=== PATIENT | male | born 1935 | race Caucasian/White ===

== ENCOUNTER 2018-11-08 18:12 | Inpatient (IN) ==
[2018-11-08 18:47] LABS: Basophils # 0.1 10*3/uL (0.0-0.2); Basophils % 0.5 % (0.0-0.8); Eosinophils # 0.2 10*3/uL (0.0-0.87); Eosinophils % 1.3 % (0.00-10.9); Hemoglobin 15.9 GM/DL (14.0-18.0); Immature Granulocytes % 0.5 %; Immature Granulocytes Absolute 0.06 #; Lymphocytes # 3.1 10*3/uL (1.4-4.0); Lymphocytes % 26.1 % (21.2-54.2); Mean Corpuscular HGB Conc 33.8 GM/DL (32-36); Mean Corpuscular Hemoglobin 32 PG (27-34); Mean Corpuscular Volume 95.5 FL (87-102); Mean Platelet Volume 9.2 FL (9.6-12.0); Monocytes % 8.2 % (1.7-12.7); Neutrophils # 7.6 10*3/uL (1.4-7.4); Neutrophils % 63.4 % (38.7-73.9); Platelet Count 220 T/CUMM (130-400); Red Blood Count 4.92 MC/CUMM (3.8-5.5); Red Cell Distribution Width 12.9 % (9.3-17.3); White Blood Count 11.9 T/CUMM (4-12)
[2018-11-08 19:04] LABS: INR 0.9; PT Patient Result 10.3 SECS; Partial Thromboplastin Time 27.3 SECS (0-40)
[2018-11-08 19:09] LABS: Alanine Aminotransferase 26 U/L (16-61); Albumin 4.1 G/DL (3.4-5.0); Alkaline Phosphatase 112 U/L (45-117); Aspartate Amino Transferase 21 U/L (0-37); Blood Urea Nitrogen 19 MG/DL (7-18); Calcium 9.3 MG/DL (8.5-10.1); Glucose 106 MG/DL (74-106); Osmolality,Calculated 274.8 MOS/KG (273-304); Potassium 4.2 MMOL/L (3.5-5.1); Sodium 137 MMOL/L (136-145); Total Protein 8.2 G/DL (6.4-8.3)
[2018-11-08] MEDS ORDERED: ACETAMINOPHEN 325 MG TABLET PO PRN (19:15)
[2018-11-08] MEDS ORDERED: ONDANSETRON 4 MG/2 ML VIAL IV PRN (19:15)
[2018-11-08] MEDS ORDERED: SODIUM CHLORIDE 0.45% 1,000 ML IV SCH (19:30)
[2018-11-08 19:39] LABS: Apearance,Urine Slightly Hazy (Clear); Bacteria,Urine Occasional /HPF (Few); Bilirubin,Urine Negative (Negative); Blood, Urine Negative (Negative); Glucose,Urine (UA) Negative (Negative); Ketones,Urine Negative (Negative); Mucus,Urine Occasional /LPF (Occasional); Nitrite,Urine Negative (Negative); Protein,Urine Negative; RBC,Urine 1 /HPF (0-4); Squamous Epithelial Cell,Urine Occasional /HPF (0-10); Urine Color Yellow (Yellow); Urine Specific Gravity 1.016 (1.001-1.035); Urine Urobilinogen < 2.0 EU/DL (0.2-1.0); WBC,Urine 5 /HPF (0-6)
[2018-11-08 19:48] LABS: Barbiturates Screen,Urine Negative (Negative); Benzodiazepines Screen,Urine Negative (Negative); Cannabinoid Screen,Urine Negative (Negative); Opiate Screen,Urine Negative (Negative); Phencyclidine Screen,Urine Negative (Negative)
[2018-11-08] MEDS ORDERED: ENOXAPARIN 40 MG/0.4 ML SYRINGE SUBCUT SCH (21:00)
[2018-11-08] MEDS: DOCUSATE SODIUM 100 MG CAPSULE PO SCH (21:28)
[2018-11-09] MEDS ORDERED: PANTOPRAZOLE 40 MG TABLET PO SCH (09:00)
[2018-11-09] MEDS: DOCUSATE SODIUM 100 MG CAPSULE PO SCH (09:57)
[2018-11-09 13:14] VITALS: BP 123/62
[2018-11-09] MEDS ORDERED: POTASSIUM CHLORIDE 8 MEQ CAPSULE PO SCH (17:00)
[2018-11-09] MEDS ORDERED: diphenhydrAMINE CAP 25 MG CAPSULE PO SCH (21:00)
[2018-11-09] MEDS ORDERED: ALLOPURINOL 300 MG TABLET PO SCH (21:00)
[2018-11-09] MEDS ORDERED: DIPYRIDAMOLE/ASPIRIN 200-25 MG CAPSULE PO SCH (21:00)
[2018-11-09] MEDS ORDERED: amLODIPine 5 MG TABLET PO SCH (21:00)
[2018-11-09] MEDS ORDERED: APIXABAN 2.5 MG TABLET PO SCH (21:00)
[2018-11-10] MEDS ORDERED: LEVOTHYROXINE 50 MCG TABLET PO SCH (07:00)
[2018-11-10] MEDS ORDERED: ASPIRIN EC 81 MG TABLET PO SCH (09:00)
== END 2018-11-09 15:24 | disposition home or self-care (01) | DRG 69 ==
LOC: N.ED 18:12 → N.EDINP 20:05 → N.4E 20:09
PROVIDERS: ADMIT Internal Medicine; ATTEND Internal Medicine

== ENCOUNTER 2019-02-25 11:03 | Inpatient (IN) ==
[2019-02-25] MEDS ORDERED: ONDANSETRON 4 MG/2 ML VIAL IV PRN (11:32)
[2019-02-25] MEDS ORDERED: ALBUTEROL/IPRATROPIUM 3 ML NEB RESP TX PRN ×2 (11:37)
[2019-02-25] MEDS: LEVOFLOXACIN INJ 500 MG in PREMIX 1 EACH IV SCH (14:49)
[2019-02-25] MEDS: SODIUM CHLORIDE 0.9% 1,000 ML IV SCH (14:49)
[2019-02-25 16:08] LABS: Bilirubin,Total 1.2 MG/DL (0.2-1.0); Calcium 8.5 MG/DL (8.5-10.1); Osmolality,Calculated 277.7 MOS/KG (273-304); Total Protein 7.2 G/DL (6.4-8.3)
[2019-02-25] MEDS: POTASSIUM CHLORIDE 8 MEQ CAPSULE PO SCH (17:33)
[2019-02-25] MEDS: ALLOPURINOL 300 MG TABLET PO SCH (20:28)
[2019-02-25] MEDS: DOCUSATE SODIUM 100 MG CAPSULE PO SCH (20:29)
[2019-02-25] MEDS: guaiFENesin/DM ER 600-30 MG TABLET PO SCH (20:29)
[2019-02-25] MEDS: APIXABAN 2.5 MG TABLET PO SCH (20:29)
[2019-02-25] MEDS: diphenhydrAMINE CAP 25 MG CAPSULE PO SCH (20:29)
[2019-02-26 04:39] LABS: Basophils % 0.1 % (0.0-0.8); Eosinophils % 0.1 % (0.00-10.9); Hematocrit 36.7 VOL% (42.0-52.0); Hemoglobin 12.2 GM/DL (14.0-18.0); Immature Granulocytes % 0.9 %; Immature Granulocytes Absolute 0.13 #; Lymphocytes # 2.4 10*3/uL (1.4-4.0); Lymphocytes % 16.3 % (21.2-54.2); Mean Corpuscular HGB Conc 33.2 GM/DL (32-36); Mean Corpuscular Volume 94.3 FL (87-102); Mean Platelet Volume 10.1 FL (9.6-12.0); Monocytes % 9.2 % (1.7-12.7); Neutrophils % 73.4 % (38.7-73.9); Platelet Count 167 T/CUMM (130-400); Red Blood Count 3.89 MC/CUMM (3.8-5.5); Red Cell Distribution Width 13.3 % (9.3-17.3); White Blood Count 14.6 T/CUMM (4-12)
[2019-02-26 04:55] LABS: Osmolality,Calculated 278.7 MOS/KG (273-304)
[2019-02-26] MEDS: SODIUM CHLORIDE 0.9% 1,000 ML IV SCH ×3 (06:03→19:06)
[2019-02-26] MEDS: LEVOTHYROXINE 50 MCG TABLET PO SCH (06:04)
[2019-02-26] MEDS: PANTOPRAZOLE 40 MG TABLET PO SCH (06:04)
[2019-02-26] MEDS: guaiFENesin/DM ER 600-30 MG TABLET PO SCH ×2 (09:37→20:55)
[2019-02-26] MEDS: ASPIRIN EC 81 MG TABLET PO SCH (09:37)
[2019-02-26] MEDS: APIXABAN 2.5 MG TABLET PO SCH ×2 (09:37→20:55)
[2019-02-26] MEDS: CYANOCOBALAMIN 500 MCG TABLET PO SCH (09:38)
[2019-02-26] MEDS: NYSTATIN 500,000 UNIT/5 ML UDCUP SWISH/SWAL SCH ×4 (09:38→21:08)
[2019-02-26] MEDS: DOCUSATE SODIUM 100 MG CAPSULE PO SCH ×2 (09:38→20:56)
[2019-02-26] MEDS: POTASSIUM CHLORIDE 8 MEQ CAPSULE PO SCH ×2 (09:38→16:44)
[2019-02-26] MEDS: LEVOFLOXACIN INJ 500 MG in PREMIX 1 EACH IV SCH (09:46)
[2019-02-26] MEDS: ALBUTEROL/IPRATROPIUM 3 ML NEB RESP TX SCH ×2 (14:16→19:19)
[2019-02-26] MEDS: ALLOPURINOL 300 MG TABLET PO SCH (20:55)
[2019-02-26] MEDS: diphenhydrAMINE CAP 25 MG CAPSULE PO SCH (20:56)
[2019-02-27] MEDS: ALBUTEROL/IPRATROPIUM 3 ML NEB RESP TX SCH ×4 (00:42→19:03)
[2019-02-27 04:49] LABS: Basophils % 0.3 % (0.0-0.8); Eosinophils % 0.2 % (0.00-10.9); Hematocrit 36.8 VOL% (42.0-52.0); Hemoglobin 12.1 GM/DL (14.0-18.0); Immature Granulocytes % 1.2 %; Immature Granulocytes Absolute 0.13 #; Lymphocytes # 1.1 10*3/uL (1.4-4.0); Lymphocytes % 10.5 % (21.2-54.2); Mean Corpuscular HGB Conc 32.9 GM/DL (32-36); Mean Corpuscular Volume 95.3 FL (87-102); Mean Platelet Volume 10.1 FL (9.6-12.0); Monocytes % 10.1 % (1.7-12.7); Neutrophils % 77.7 % (38.7-73.9); Platelet Count 167 T/CUMM (130-400); Red Blood Count 3.86 MC/CUMM (3.8-5.5); Red Cell Distribution Width 13.2 % (9.3-17.3); White Blood Count 10.9 T/CUMM (4-12)
[2019-02-27 04:59] LABS: Calcium 8.3 MG/DL (8.5-10.1); Osmolality,Calculated 278.7 MOS/KG (273-304)
[2019-02-27] MEDS: PANTOPRAZOLE 40 MG TABLET PO SCH (05:34)
[2019-02-27] MEDS: LEVOTHYROXINE 50 MCG TABLET PO SCH (06:34)
[2019-02-27] MEDS: CYANOCOBALAMIN 500 MCG TABLET PO SCH (09:04)
[2019-02-27] MEDS: DOCUSATE SODIUM 100 MG CAPSULE PO SCH ×2 (09:04→21:10)
[2019-02-27] MEDS: POTASSIUM CHLORIDE 8 MEQ CAPSULE PO SCH ×2 (09:04→17:07)
[2019-02-27] MEDS: ASPIRIN EC 81 MG TABLET PO SCH (09:04)
[2019-02-27] MEDS: NYSTATIN 500,000 UNIT/5 ML UDCUP SWISH/SWAL SCH ×4 (09:04→21:10)
[2019-02-27] MEDS: guaiFENesin/DM ER 600-30 MG TABLET PO SCH ×2 (09:04→21:10)
[2019-02-27] MEDS: APIXABAN 2.5 MG TABLET PO SCH ×2 (09:04→21:10)
[2019-02-27] MEDS: LEVOFLOXACIN INJ 500 MG in PREMIX 1 EACH IV SCH (09:05)
[2019-02-27] MEDS: PITAVASTATIN 2 MG TABLET PO SCH (09:07)
[2019-02-27] MEDS: SODIUM CHLORIDE 0.9% 1,000 ML IV SCH (11:34)
[2019-02-27] MEDS: diphenhydrAMINE CAP 25 MG CAPSULE PO SCH (21:10)
[2019-02-27] MEDS: ALLOPURINOL 300 MG TABLET PO SCH (21:10)
[2019-02-28] MEDS: ALBUTEROL/IPRATROPIUM 3 ML NEB RESP TX SCH ×4 (01:10→19:30)
[2019-02-28] MEDS: SODIUM CHLORIDE 0.9% 1,000 ML IV SCH ×2 (02:00→17:09)
[2019-02-28 04:32] LABS: Basophils % 0.3 % (0.0-0.8); Eosinophils # 0.1 10*3/uL (0.0-0.87); Eosinophils % 0.9 % (0.00-10.9); Hematocrit 35.1 VOL% (42.0-52.0); Hemoglobin 11.9 GM/DL (14.0-18.0); Immature Granulocytes % 1.5 %; Immature Granulocytes Absolute 0.15 #; Lymphocytes # 1.4 10*3/uL (1.4-4.0); Lymphocytes % 14.7 % (21.2-54.2); Mean Corpuscular HGB Conc 33.9 GM/DL (32-36); Mean Corpuscular Volume 93.1 FL (87-102); Monocytes % 10.8 % (1.7-12.7); Neutrophils % 71.8 % (38.7-73.9); Platelet Count 184 T/CUMM (130-400); Red Blood Count 3.77 MC/CUMM (3.8-5.5); Red Cell Distribution Width 13.3 % (9.3-17.3); White Blood Count 9.8 T/CUMM (4-12)
[2019-02-28 05:05] LABS: Calcium 8.4 MG/DL (8.5-10.1); Osmolality,Calculated 279.5 MOS/KG (273-304)
[2019-02-28] MEDS: PANTOPRAZOLE 40 MG TABLET PO SCH (06:00)
[2019-02-28] MEDS: LEVOTHYROXINE 50 MCG TABLET PO SCH (06:00)
[2019-02-28] MEDS: ASPIRIN EC 81 MG TABLET PO SCH (08:54)
[2019-02-28] MEDS: guaiFENesin/DM ER 600-30 MG TABLET PO SCH ×2 (08:54→20:16)
[2019-02-28] MEDS: NYSTATIN 500,000 UNIT/5 ML UDCUP SWISH/SWAL SCH ×4 (08:54→20:16)
[2019-02-28] MEDS: CYANOCOBALAMIN 500 MCG TABLET PO SCH (08:54)
[2019-02-28] MEDS: DOCUSATE SODIUM 100 MG CAPSULE PO SCH ×2 (08:54→20:16)
[2019-02-28] MEDS: POTASSIUM CHLORIDE 8 MEQ CAPSULE PO SCH ×2 (08:54→17:09)
[2019-02-28] MEDS: APIXABAN 2.5 MG TABLET PO SCH ×2 (08:55→20:17)
[2019-02-28] MEDS: LEVOFLOXACIN INJ 500 MG in PREMIX 1 EACH IV SCH (08:55)
[2019-02-28] MEDS: ACETAMINOPHEN 325 MG TABLET PO PRN (20:13)
[2019-02-28] MEDS: diphenhydrAMINE CAP 25 MG CAPSULE PO SCH (20:16)
[2019-02-28] MEDS: ALLOPURINOL 300 MG TABLET PO SCH (20:17)
[2019-03-01] MEDS: ALBUTEROL/IPRATROPIUM 3 ML NEB RESP TX SCH ×4 (00:52→20:00)
[2019-03-01] MEDS: SODIUM CHLORIDE 0.9% 1,000 ML IV SCH ×2 (04:20→13:48)
[2019-03-01] MEDS: LEVOTHYROXINE 50 MCG TABLET PO SCH (06:11)
[2019-03-01] MEDS: PANTOPRAZOLE 40 MG TABLET PO SCH (06:11)
[2019-03-01] MEDS: guaiFENesin/DM ER 600-30 MG TABLET PO SCH ×2 (08:39→20:51)
[2019-03-01] MEDS: PITAVASTATIN 2 MG TABLET PO SCH (08:39)
[2019-03-01] MEDS: CYANOCOBALAMIN 500 MCG TABLET PO SCH (08:39)
[2019-03-01] MEDS: DOCUSATE SODIUM 100 MG CAPSULE PO SCH ×2 (08:39→20:52)
[2019-03-01] MEDS: POTASSIUM CHLORIDE 8 MEQ CAPSULE PO SCH ×2 (08:39→16:20)
[2019-03-01] MEDS: APIXABAN 2.5 MG TABLET PO SCH ×2 (08:40→20:52)
[2019-03-01] MEDS: LEVOFLOXACIN INJ 500 MG in PREMIX 1 EACH IV SCH (08:40)
[2019-03-01] MEDS: ASPIRIN EC 81 MG TABLET PO SCH (08:40)
[2019-03-01] MEDS: NYSTATIN 500,000 UNIT/5 ML UDCUP SWISH/SWAL SCH ×4 (08:43→20:52)
[2019-03-01] MEDS: diphenhydrAMINE CAP 25 MG CAPSULE PO SCH (20:51)
[2019-03-01] MEDS: ALLOPURINOL 300 MG TABLET PO SCH (20:51)
[2019-03-01] MEDS ORDERED: POLYETHYLENE GLYCOL POWDER 17 GM PACK PO PRN (21:38)
[2019-03-01] MEDS: POLYETHYLENE GLYCOL POWDER 17 GM PACK PO PRN (21:55)
[2019-03-02] MEDS: ALBUTEROL/IPRATROPIUM 3 ML NEB RESP TX SCH ×4 (01:20→19:03)
[2019-03-02] MEDS: SODIUM CHLORIDE 0.9% 1,000 ML IV SCH ×2 (03:30→17:21)
[2019-03-02 05:53] LABS: Basophils # 0.1 10*3/uL (0.0-0.2); Basophils % 0.5 % (0.0-0.8); Eosinophils # 0.1 10*3/uL (0.0-0.87); Eosinophils % 1.4 % (0.00-10.9); Hematocrit 35.7 VOL% (42.0-52.0); Hemoglobin 11.9 GM/DL (14.0-18.0); Immature Granulocytes % 4.6 %; Immature Granulocytes Absolute 0.46 #; Lymphocytes # 1.1 10*3/uL (1.4-4.0); Lymphocytes % 11.3 % (21.2-54.2); Mean Corpuscular HGB Conc 33.3 GM/DL (32-36); Mean Corpuscular Volume 93.2 FL (87-102); Mean Platelet Volume 9.8 FL (9.6-12.0); Monocytes % 9.3 % (1.7-12.7); Neutrophils % 72.9 % (38.7-73.9); Platelet Count 222 T/CUMM (130-400); Red Blood Count 3.83 MC/CUMM (3.8-5.5); Red Cell Distribution Width 13.4 % (9.3-17.3); White Blood Count 10.1 T/CUMM (4-12)
[2019-03-02] MEDS: PANTOPRAZOLE 40 MG TABLET PO SCH (06:02)
[2019-03-02 06:17] LABS: Calcium 8.3 MG/DL (8.5-10.1); Osmolality,Calculated 276.7 MOS/KG (273-304)
[2019-03-02] MEDS: LEVOTHYROXINE 50 MCG TABLET PO SCH (07:06)
[2019-03-02] MEDS: DOCUSATE SODIUM 100 MG CAPSULE PO SCH ×2 (08:52→21:28)
[2019-03-02] MEDS: POTASSIUM CHLORIDE 8 MEQ CAPSULE PO SCH ×2 (08:52→17:21)
[2019-03-02] MEDS: NYSTATIN 500,000 UNIT/5 ML UDCUP SWISH/SWAL SCH ×4 (08:53→21:28)
[2019-03-02] MEDS: guaiFENesin/DM ER 600-30 MG TABLET PO SCH ×2 (08:53→21:27)
[2019-03-02] MEDS: CYANOCOBALAMIN 500 MCG TABLET PO SCH (08:53)
[2019-03-02] MEDS: APIXABAN 2.5 MG TABLET PO SCH ×2 (08:53→21:28)
[2019-03-02] MEDS: LEVOFLOXACIN INJ 500 MG in PREMIX 1 EACH IV SCH (08:53)
[2019-03-02] MEDS: ASPIRIN EC 81 MG TABLET PO SCH (08:53)
[2019-03-02] MEDS: ACETAMINOPHEN 325 MG TABLET PO PRN ×2 (13:02→21:28)
[2019-03-02] MEDS: ALLOPURINOL 300 MG TABLET PO SCH (21:27)
[2019-03-02] MEDS: diphenhydrAMINE CAP 25 MG CAPSULE PO SCH (21:28)
[2019-03-03] MEDS: ALBUTEROL/IPRATROPIUM 3 ML NEB RESP TX SCH ×4 (00:15→19:06)
[2019-03-03] MEDS: SODIUM CHLORIDE 0.9% 1,000 ML IV SCH (07:05)
[2019-03-03] MEDS: PANTOPRAZOLE 40 MG TABLET PO SCH (07:05)
[2019-03-03] MEDS: LEVOTHYROXINE 50 MCG TABLET PO SCH (07:05)
[2019-03-03 09:06] LABS: Basophils # 0.1 10*3/uL (0.0-0.2); Basophils % 0.8 % (0.0-0.8); Eosinophils # 0.2 10*3/uL (0.0-0.87); Eosinophils % 2.1 % (0.00-10.9); Hematocrit 39.7 VOL% (42.0-52.0); Immature Granulocytes % 5.5 %; Immature Granulocytes Absolute 0.54 #; Lymphocytes # 1.9 10*3/uL (1.4-4.0); Mean Corpuscular HGB Conc 32.7 GM/DL (32-36); Mean Corpuscular Volume 95.4 FL (87-102); Mean Platelet Volume 9.3 FL (9.6-12.0); Monocytes % 8.5 % (1.7-12.7); Neutrophils % 64.1 % (38.7-73.9); Platelet Count 269 T/CUMM (130-400); Red Blood Count 4.16 MC/CUMM (3.8-5.5); Red Cell Distribution Width 13.7 % (9.3-17.3); White Blood Count 9.8 T/CUMM (4-12)
[2019-03-03 09:34] LABS: Band Neutrophils 1 % (0-10); Eosinophils 2 % (0-10); Hypochromasia 1+; Lymphocytes 20 % (20-55); Myelocytes 1 %; Platelet Estimate Adequate; Segmented Neutrophils 65 % (50-85); Total Cells Counted 100
[2019-03-03] MEDS: ASPIRIN EC 81 MG TABLET PO SCH (09:39)
[2019-03-03] MEDS: POLYETHYLENE GLYCOL POWDER 17 GM PACK PO PRN (09:39)
[2019-03-03] MEDS: guaiFENesin/DM ER 600-30 MG TABLET PO SCH ×2 (09:39→20:34)
[2019-03-03] MEDS: POTASSIUM CHLORIDE 8 MEQ CAPSULE PO SCH ×2 (09:39→16:10)
[2019-03-03] MEDS: CYANOCOBALAMIN 500 MCG TABLET PO SCH (09:39)
[2019-03-03] MEDS: APIXABAN 2.5 MG TABLET PO SCH ×2 (09:39→20:34)
[2019-03-03] MEDS: DOCUSATE SODIUM 100 MG CAPSULE PO SCH ×2 (09:39→20:34)
[2019-03-03 09:40] LABS: Osmolality,Calculated 283.4 MOS/KG (273-304)
[2019-03-03] MEDS: NYSTATIN 500,000 UNIT/5 ML UDCUP SWISH/SWAL SCH ×4 (09:40→20:34)
[2019-03-03] MEDS: LEVOFLOXACIN INJ 500 MG in PREMIX 1 EACH IV SCH (09:40)
[2019-03-03] MEDS: PITAVASTATIN 2 MG TABLET PO SCH (12:11)
[2019-03-03] MEDS ORDERED: BENZONATATE 100 MG CAPSULE PO PRN (14:38)
[2019-03-03] MEDS: LACTULOSE 20 GM/30 ML UDCUP PO PRN ×2 (16:10→21:10)
[2019-03-03] MEDS: methylPREDNISolone SOD SUC 40 MG/1 ML VIAL IV SCH (17:25)
[2019-03-03] MEDS: diphenhydrAMINE CAP 25 MG CAPSULE PO SCH (20:34)
[2019-03-03] MEDS: ALLOPURINOL 300 MG TABLET PO SCH (20:34)
[2019-03-04] MEDS: methylPREDNISolone SOD SUC 40 MG/1 ML VIAL IV SCH ×2 (00:23→08:55)
[2019-03-04] MEDS: ALBUTEROL/IPRATROPIUM 3 ML NEB RESP TX SCH ×2 (01:38→07:16)
[2019-03-04 04:36] LABS: Basophils % 0.5 % (0.0-0.8); Hematocrit 38.4 VOL% (42.0-52.0); Hemoglobin 12.8 GM/DL (14.0-18.0); Immature Granulocytes % 4.9 %; Immature Granulocytes Absolute 0.39 #; Lymphocytes # 0.7 10*3/uL (1.4-4.0); Lymphocytes % 8.6 % (21.2-54.2); Mean Corpuscular HGB Conc 33.3 GM/DL (32-36); Mean Corpuscular Volume 93.2 FL (87-102); Mean Platelet Volume 9.8 FL (9.6-12.0); Monocytes % 2.4 % (1.7-12.7); Neutrophils % 83.6 % (38.7-73.9); Platelet Count 312 T/CUMM (130-400); Red Blood Count 4.12 MC/CUMM (3.8-5.5); Red Cell Distribution Width 13.5 % (9.3-17.3)
[2019-03-04] MEDS: PANTOPRAZOLE 40 MG TABLET PO SCH (05:55)
[2019-03-04] MEDS: LEVOTHYROXINE 50 MCG TABLET PO SCH (06:00)
[2019-03-04 08:50] VITALS: BP 130/70
[2019-03-04] MEDS: CYANOCOBALAMIN 500 MCG TABLET PO SCH (08:54)
[2019-03-04] MEDS: DOCUSATE SODIUM 100 MG CAPSULE PO SCH (08:54)
[2019-03-04] MEDS: guaiFENesin/DM ER 600-30 MG TABLET PO SCH (08:54)
[2019-03-04] MEDS: POTASSIUM CHLORIDE 8 MEQ CAPSULE PO SCH (08:54)
[2019-03-04] MEDS: APIXABAN 2.5 MG TABLET PO SCH (08:54)
[2019-03-04] MEDS: LEVOFLOXACIN INJ 500 MG in PREMIX 1 EACH IV SCH (08:55)
[2019-03-04] MEDS: ASPIRIN EC 81 MG TABLET PO SCH (08:55)
[2019-03-04] MEDS: NYSTATIN 500,000 UNIT/5 ML UDCUP SWISH/SWAL SCH (08:55)
== END 2019-03-04 11:10 | disposition home health service (06) | DRG 194 ==
LOC: N.2E 13:28
PROVIDERS: ADMIT Internal Medicine; ATTEND Internal Medicine